=== PATIENT | male | born 1975 | race Caucasian/White ===

== ENCOUNTER 2019-08-27 08:46 | Outpatient (CLI) | payer OTHER ==
[2019-08-27] VITALS (8 sets, daily range): BP systolic 109–144; BP diastolic 56–86
[~2019-08-27] VITALS: Ht 190.5 cm; Wt 92.3 kg
[2019-08-27] MEDS ORDERED: OCRELIZUMAB 300 MG in NS 250 ML IV ONE (09:00)
[2019-08-27] MEDS ORDERED: diphenhydrAMINE 25MG CAP PO ONE (09:00)
[2019-08-27] MEDS ORDERED: methylPREDNISolone INJ 125 MG/2 ML VIAL (J2930) IV ONE (09:00)
[2019-08-27] MEDS ORDERED: ACETAMINOPHEN TAB 650MG DOSE (2X325MG) PO ONE (09:00)
[2019-08-27] MEDS ORDERED: MODA100T13 PO (10:34)
[2019-08-27] MEDS ORDERED: VITATAB74 PO (10:34)
[2019-08-27] MEDS ORDERED: COPA1INJ SC (10:34)
[2019-08-27] MEDS ORDERED: BACL1TAB9 PO (10:34)
[2019-08-27] MEDS ORDERED: FOLTTAB9 PO (10:34)
[2019-08-27] MEDS ORDERED: DIALTAB2 PO (10:34)
[2019-08-27] MEDS ORDERED: TRAM50TA2 PO (10:34)
[2019-08-27] MEDS ORDERED: IMIT100T PO (10:34)
== END 2019-08-27 13:00 | disposition home or self-care (01) ==
LOC: M INFU 08:46
PROVIDERS: ATTEND Psychiatry & Neurology Neurology
DX: G35 Multiple sclerosis (principal)
CPT/HCPCS: 96413; 96415; J2350; J2930

== ENCOUNTER 2019-09-11 08:27 | Outpatient (CLI) | payer OTHER ==
[~2019-09-11] VITALS: Ht 190.5 cm; Wt 92.3 kg
[~2019-09-11 08:27] MED LIST: BACL1TAB9 PO; COPA1INJ SC; DIALTAB2 PO; FOLTTAB9 PO; IMIT100T PO; MODA100T13 PO; TRAM50TA2 PO; VITATAB74 PO
[2019-09-11 08:40] VITALS: BP 139/81
[2019-09-11] MEDS ORDERED: ACETAMINOPHEN TAB 650MG DOSE (2X325MG) PO ONE (08:45)
[2019-09-11] MEDS ORDERED: diphenhydrAMINE 25MG CAP PO ONE (08:45)
[2019-09-11] MEDS ORDERED: methylPREDNISolone INJ 125 MG/2 ML VIAL (J2930) IV ONE (08:45)
[2019-09-11] MEDS ORDERED: OCRELIZUMAB 300 MG in NS 250 ML IV ONE (08:45)
[2019-09-11 09:45] VITALS: BP 122/67
[2019-09-11 10:00] VITALS: BP 112/64
[2019-09-11 10:45] VITALS: BP 118/57
[2019-09-11 11:45] VITALS: BP 116/68
[2019-09-11 12:15] VITALS: BP 121/76
== END 2019-09-11 12:15 | disposition home or self-care (01) ==
LOC: M INFU 08:27
PROVIDERS: ATTEND Psychiatry & Neurology Neurology
DX: G35 Multiple sclerosis (principal)
CPT/HCPCS: 96375; 96413; 96415; J2350; J2930

== ENCOUNTER 2020-03-10 08:43 | Outpatient (CLI) | payer OTHER ==
[2020-03-10] VITALS (7 sets, daily range): BP systolic 106–130; BP diastolic 61–87
[~2020-03-10] VITALS: Ht 188 cm; Wt 92.3 kg
[2020-03-10] MEDS ORDERED: methylPREDNISolone 125MG 2ML VIAL IV ONE (09:00)
[2020-03-10] MEDS ORDERED: ACETAMINOPHEN TAB 650MG DOSE (2X325MG) PO ONE (09:00)
[2020-03-10] MEDS ORDERED: diphenhydrAMINE 25MG CAP PO ONE (09:00)
[2020-03-10] MEDS ORDERED: OCRELIZUMAB 600 MG in NS 500 ML IV ONE (09:00)
== END 2020-03-10 13:25 | disposition home or self-care (01) ==
LOC: M INFU 08:43
PROVIDERS: ATTEND Psychiatry & Neurology Neurology
DX: G35 Multiple sclerosis (principal)
CPT/HCPCS: 96365; 96366; 96375; J2350; J2930

== ENCOUNTER 2020-09-07 08:59 | Outpatient (CLI) | payer OTHER ==
[~2020-09-07] VITALS: Ht 190.5 cm; Wt 86.3 kg
[2020-09-07] VITALS (7 sets, daily range): BP systolic 113–134; BP diastolic 72–89
[2020-09-07] MEDS ORDERED: methylPREDNISolone 125MG 2ML VIAL IV ONE (09:30)
[2020-09-07] MEDS ORDERED: ACETAMINOPHEN TAB 650MG DOSE (2X325MG) PO ONE (09:30)
[2020-09-07] MEDS ORDERED: OCRELIZUMAB 600 MG in NS 500 ML IV ONE (09:30)
[2020-09-07] MEDS ORDERED: diphenhydrAMINE 25MG CAP PO ONE (09:30)
== END 2020-09-07 14:20 | disposition home or self-care (01) ==
LOC: M INFU 08:59
PROVIDERS: ATTEND Psychiatry & Neurology Neurology
DX: G35 Multiple sclerosis (principal)
CPT/HCPCS: 96375; 96413; 96415; J2350; J2930

== ENCOUNTER 2020-11-21 12:23 | Emergency (ER) | payer OTHER ==
[~2020-11-21] VITALS: Ht 188 cm; Wt 89.1 kg
[2020-11-21] MEDS ORDERED: OCRE300I IV (12:45)
[2020-11-21 13:53] LABS: BASO # 0.1 10^3/uL (0.0-0.2); BASO % 0.7 % (0.0-1.0); EOS % 0.5 % (0.0-3.0); HEMATOCRIT 43.7 % (42.0-52.0); HEMOGLOBIN 15.8 g/dl (13.5-17.5); LYMPH # 2.1 10^3/uL (1.5-5.0); LYMPH % 23.8 % (24.0-44.0); MEAN CORPUSCULAR HEMOGLOBIN 31.5 pg (27.0-33.0); MEAN CORPUSCULAR HGB CONC 36.2 g/dl (32.0-36.5); MEAN CORPUSCULAR VOLUME 87.1 fl (80.0-96.0); MONO # 0.6 10^3/uL (0.0-0.8); MONO % 6.2 % (2.0-8.0); NEUTROPHILS % 68.3 % (36.0-66.0); PLATELET COUNT, AUTOMATED 255 10^3/uL (150-450); RED BLOOD COUNT 5.02 10^6/uL (4.30-6.10); WHITE BLOOD COUNT 8.8 10^3/uL (4.0-10.0)
[2020-11-21 14:27] LABS: ALBUMIN 3.8 GM/DL (3.2-5.2); ALT/SGPT 39 U/L (12-78); BILIRUBIN,DIRECT 0.2 MG/DL (0.0-0.2); BILIRUBIN,TOTAL 0.7 MG/DL (0.2-1.0); BLOOD UREA NITROGEN 9 MG/DL (7-18); CALCIUM LEVEL 8.9 MG/DL (8.5-10.1); CARBON DIOXIDE LEVEL 26 MEQ/L (21-32); CHLORIDE LEVEL 105 MEQ/L (98-107); CK-MB VALUE MASS 7.8 NG/ML (<3.6); CPK CREATINE PHOSPHOKINASE 809 U/L (39-308); CREATININE FOR GFR 0.73 MG/DL (0.70-1.30); FREE T4 0.96 NG/DL (0.76-1.46); GLOMERULAR FILTRATION RATE > 60.0 (>60); GLUCOSE, FASTING 90 MG/DL (70-100); LIPASE 96 U/L (73-393); MB/CK RELATIVE INDEX 0.96 (< OR =4); NT-PRO BNP 10 PG/ML (<125); POTASSIUM SERUM 3.8 MEQ/L (3.5-5.1); SODIUM LEVEL 138 MEQ/L (136-145); TOTAL PROTEIN 7.1 GM/DL (6.4-8.2); TROPONIN I < 0.02 NG/ML (< 0.10)
--- NOTE | 2020-11-21 14:33 | REP ---
INDICATION: CHEST PAIN COMPARISON: None. TECHNIQUE: Portable AP view of the chest FINDINGS: The mediastinum and cardiac silhouette are within normal limits for portable technique. The lung bautista are clear without acute consolidation, effusion, or pneumothorax. Skeletal structures are intact. IMPRESSION: No acute cardiopulmonary process appreciated. <Electronically signed by Roger Gerardo > 11/21/20 [id number]
[2020-11-21] MEDS ORDERED: ISOVUE-370 76% 100ML VIAL As Ordered ONE (14:53)
--- NOTE | 2020-11-21 15:39 | REP ---
INDICATION: SOB, rule out PE COMPARISON: None. TECHNIQUE: Axial contrast enhanced images from the thoracic inlet to the upper abdomen using pulmonary embolus technique with multiplanar re-formations. 100 ml Isovue 370 intravenous contrast material administered without complication. This CT examination was performed using the following dose reduction techniques: Automated exposure control, adjustment of mA and/or kv according to the patient's size, and use of iterative reconstruction technique. FINDINGS: Satisfactory enhancement of the pulmonary vasculature is achieved and no filling defects are identified to suggest pulmonary embolus. Further evaluation of the mediastinum demonstrates normal thoracic aorta, heart and pericardium. The bilateral lung bautista are well aerated and clear without consolidation, pleural effusion or pneumothorax. Small noncalcified perifissural nodules adjacent to the minor fissure measures up to 4 mm. Tracheobronchial tree is patent. No adenopathy noted. Surrounding musculoskeletal structures intact. Upper abdomen demonstrates normal bilateral adrenal glands IMPRESSION: No evidence for pulmonary embolus. Normal thoracic aorta. No acute mediastinal or pleural parenchymal process. 4 mm perifissural nodule along the right minor fissure. Based on risk factors, consider 12 month follow-up examination if necessary. <Electronically signed by Roger Gerardo > 11/21/20 [id number]
--- NOTE | 2020-11-21 15:45 | REP ---
INDICATION: left thigh claudication, please include tibial vessels COMPARISON: None TECHNIQUE: Axial contrast-enhanced images of the abdomen and pelvis with extension through the bilateral lower extremities using angiographic technique. 100 cc Isovue 370 intravenous contrast material administered without complication. Coronal and sagittal reformations obtained along with This CT examination was performed using the following dose reduction techniques: Automated exposure control, adjustment of mA and/or kv according to the patient's size, and use of iterative reconstruction technique. FINDINGS: The abdominal aorta and major branch vessels including celiac axis, superior mesenteric artery, bilateral renal arteries, inferior mesenteric artery and bilateral iliac arteries are normal. There is no evidence for aneurysm or dissection. No evidence for stenosis or occlusion. No significant atherosclerotic changes are identified. Angiographic evaluation through the pelvis and bilateral lower extremities demonstrates normal three-vessel runoff to the level of the ankles. Lung bases are clear. Visualized heart and pericardium normal. Liver, spleen, pancreas, gallbladder, bilateral adrenal glands and kidneys are normal for arterial enhancement. The enteric system is unremarkable and without obstruction or acute inflammatory process. Normal terminal ileum and appendix identified in the right lower quadrant. Sigmoid diverticula noted without acute diverticulitis. Pelvis demonstrates normal bladder and age-appropriate prostate/seminal vesicles. No ascites. No free air. No adenopathy. No focal inflammatory stranding. Musculoskeletal structures are intact and without acute osseous abnormality. IMPRESSION: No acute abdominopelvic pathology appreciated. Normal appearance to the aorta, branch vessels and arterial supply to the bilateral lower extremities. <Electronically signed by Roger Gerardo > 11/21/20 [id number]
[2020-11-21] MEDS ORDERED: NS 1,000 ML IV ONE (16:10)
--- NOTE | 2020-11-21 17:54 | REP ---
INDICATION: pain and swelling COMPARISON: None. TECHNIQUE: Christianson scale and color Doppler evaluation using linear high frequency transducer. FINDINGS: Ultrasound examination of the left lower extremity deep venous structures from the common femoral vein through the calf/ankle to include the peroneal, and tibial veins demonstrates normal compressibility flow and wave patterns in response to respiration and augmentation. There is no evidence for deep venous thrombosis. Contralateral CFV is patent and normal. IMPRESSION: No evidence for deep venous thrombosis. <Electronically signed by Roger Gerardo > 11/21/20 [id number]
[2020-11-21] MEDS ORDERED: DEXA6TAB PO (18:59)
[2020-11-21 19:15] VITALS: BP 128/71
--- NOTE | 2020-11-21 20:33 | ECGEPIP ---
[facility] - ED Test Date: 2020-11-21 Pat Name: JOSE ROSSI Department: Room: - Gender: Male [employer]: MARY KAY : 1975 Requested By: Bernice Pinzon Order Number: [id number] Reading MD: Suhas Recinos Measurements Intervals [place] Rate: 77 P: 30 DC: 136 QRS: 18 QRSD: 84 T: 45 QT: 382 QTc: 432 Interpretive Statements Normal sinus rhythm with sinus arrhythmia Low QRS complex voltage in the limb leads Nonspecific T wave abnormality Comparison tracing not on file Electronically Signed on 11-21-2020 20:32:31 EDT by Suhas Recinos
--- NOTE | 2020-11-25 11:36 | ED PDOC ---
Post-Departure Follow-Up radiology report faxed to [place] Bernice Uriostegui MD Nov 25, 2020 11:36
== END 2020-11-21 19:37 | disposition home or self-care (01) ==
LOC: M ED 12:23
DX: G35 Multiple sclerosis (principal); I70.212 Atherosclerosis of native arteries of extremities with intermittent claudication, left leg; R06.02 Shortness of breath; R11.0 Nausea; R51.9 Headache, unspecified; F17.200 Nicotine dependence, unspecified, uncomplicated; Z79.899 Other long term (current) drug therapy
CPT/HCPCS: 71045; 71275; 75635; 80048; 80076; 82550; 82553; 83605; 83690; 83880; 84439; 84443; 84484; 85025; 87798; 93005; 93041; 93971; 94760; 96360; 96361; 99285; Q9967

== ENCOUNTER 2020-12-14 16:10 | Outpatient (CLI) | payer OTHER ==
[~2020-12-14] VITALS: Ht 190.5 cm; Wt 90.0 kg
[2020-12-14 16:10] VITALS: BP 137/92
[~2020-12-14 16:10] MED LIST changes: +DEXA6TAB PO; +OCRE300I IV; +methylPREDNISolone 1,000 MG, VIAL MATE ADAPTER 1 EACH in NS 250 ML IV ONE
[2020-12-14] MEDS ORDERED: AMIT-257 PO (16:25)
[2020-12-14 17:30] VITALS: BP 140/82
== END 2020-12-14 17:30 | disposition home or self-care (01) ==
LOC: M INFU 16:10
PROVIDERS: ATTEND Family Medicine
DX: G35 Multiple sclerosis (principal)
CPT/HCPCS: 96365; J2930

== ENCOUNTER 2020-12-15 15:41 | Outpatient (CLI) | payer OTHER ==
[~2020-12-15] VITALS: Ht 188 cm; Wt 90.0 kg
[~2020-12-15 15:41] MED LIST changes: +AMIT-257 PO; -methylPREDNISolone 1,000 MG, VIAL MATE ADAPTER 1 EACH in NS 250 ML IV ONE
[2020-12-15 15:50] VITALS: BP 131/78
[2020-12-15] MEDS ORDERED: methylPREDNISolone 1,000 MG, VIAL MATE ADAPTER 1 EACH in NS 250 ML IV ONE (16:00)
[2020-12-15 17:00] VITALS: BP 130/83
== END 2020-12-15 17:00 | disposition home or self-care (01) ==
LOC: M INFU 15:41
PROVIDERS: ATTEND Family Medicine
DX: G35 Multiple sclerosis (principal)
CPT/HCPCS: 96365; J2930

== ENCOUNTER 2020-12-16 15:40 | Outpatient (CLI) | payer OTHER ==
[~2020-12-16] VITALS: Ht 188 cm; Wt 90.0 kg
[2020-12-16 15:40] VITALS: BP 138/86
[2020-12-16] MEDS ORDERED: methylPREDNISolone 1,000 MG, VIAL MATE ADAPTER 1 EACH in NS 250 ML IV ONE (16:00)
[2020-12-16 16:58] VITALS: BP 135/88
== END 2020-12-16 17:00 | disposition home or self-care (01) ==
LOC: M INFU 15:40
PROVIDERS: ATTEND Family Medicine
DX: G35 Multiple sclerosis (principal)
CPT/HCPCS: 96365; J2930

== ENCOUNTER 2020-12-17 15:50 | Outpatient (CLI) | payer OTHER ==
[2020-12-17 16:00] VITALS: BP 125/85
[2020-12-17] MEDS ORDERED: methylPREDNISolone 1,000 MG, VIAL MATE ADAPTER 1 EACH in NS 250 ML IV ONE (16:00)
[2020-12-17 17:30] VITALS: BP 138/79
== END 2020-12-17 17:20 | disposition home or self-care (01) ==
LOC: M INFU 15:50
PROVIDERS: ATTEND Family Medicine
DX: G35 Multiple sclerosis (principal)
CPT/HCPCS: 96365; J2930

== ENCOUNTER 2020-12-18 09:53 | Outpatient (CLI) | payer OTHER ==
[~2020-12-18] VITALS: Ht 188 cm; Wt 103.0 kg
[2020-12-18 10:05] VITALS: BP 118/71
[2020-12-18] MEDS ORDERED: methylPREDNISolone 1,000 MG, VIAL MATE ADAPTER 1 EACH in NS 250 ML IV ONE (10:30)
[2020-12-18 11:27] VITALS: BP 127/80
== END 2020-12-18 11:25 | disposition home or self-care (01) ==
LOC: M INFU 09:53
PROVIDERS: ATTEND Family Medicine
DX: G35 Multiple sclerosis (principal)
CPT/HCPCS: 96365; J2930

== ENCOUNTER 2021-03-09 08:12 | Outpatient (CLI) | payer OTHER ==
[~2021-03-09] VITALS: Ht 190.5 cm; Wt 98.2 kg
[2021-03-09] VITALS (8 sets, daily range): BP systolic 107–143; BP diastolic 58–83
[2021-03-09] MEDS ORDERED: GABA800T4 PO (08:23)
[2021-03-09] MEDS ORDERED: OCRELIZUMAB 600 MG in NS 500 ML IV ONE (09:00)
[2021-03-09] MEDS ORDERED: methylPREDNISolone 125MG 2ML VIAL IV ONE (09:00)
[2021-03-09] MEDS ORDERED: ACETAMINOPHEN TAB 650MG DOSE (2X325MG) PO ONE (09:00)
[2021-03-09] MEDS ORDERED: diphenhydrAMINE 25MG CAP PO ONE (09:00)
== END 2021-03-09 13:30 | disposition home or self-care (01) ==
LOC: M INFU 08:12
PROVIDERS: ATTEND Psychiatry & Neurology Neurology
DX: G35 Multiple sclerosis (principal)
CPT/HCPCS: 96365; 96366; 96375; J2350; J2930

== ENCOUNTER 2021-05-11 14:05 | Observation (INO) | payer OTHER ==
[~2021-05-11] VITALS: Ht 190.5 cm; Wt 100.0 kg
[~2021-05-11 14:05] MED LIST changes: +GABA800T4 PO
[2021-05-11 17:14] LABS: BASO # 0.1 10^3/uL (0.0-0.2); BASO % 0.7 % (0.0-1.0); EOS # 0.2 10^3/uL (0.0-0.5); EOS % 1.4 % (0.0-3.0); HEMATOCRIT 37.9 % (42.0-52.0); HEMOGLOBIN 12.8 g/dl (13.5-17.5); LYMPH # 3.9 10^3/uL (1.5-5.0); LYMPH % 33.2 % (24.0-44.0); MEAN CORPUSCULAR HEMOGLOBIN 30.3 pg (27.0-33.0); MEAN CORPUSCULAR HGB CONC 33.8 g/dl (32.0-36.5); MEAN CORPUSCULAR VOLUME 89.6 fl (80.0-96.0); MONO # 1.1 10^3/uL (0.0-0.8); MONO % 9.3 % (2.0-8.0); NEUTROPHILS # 6.3 10^3/uL (1.5-8.5); PLATELET COUNT, AUTOMATED 312 10^3/uL (150-450); RED BLOOD COUNT 4.23 10^6/uL (4.30-6.10); WHITE BLOOD COUNT 11.7 10^3/uL (4.0-10.0)
[2021-05-11 17:31] LABS: ALBUMIN 3.2 GM/DL (3.2-5.2); ALT/SGPT 40 U/L (12-78); BILIRUBIN,DIRECT < 0.1 MG/DL (0.0-0.2); BILIRUBIN,TOTAL 0.4 MG/DL (0.2-1.0); BLOOD UREA NITROGEN 8 MG/DL (7-18); C REACTIVE PROTEIN QUANTITATIV 4.03 MG/DL (0.00-0.30); CALCIUM LEVEL 8.8 MG/DL (8.5-10.1); CARBON DIOXIDE LEVEL 30 MEQ/L (21-32); CHLORIDE LEVEL 106 MEQ/L (98-107); CREATININE FOR GFR 0.61 MG/DL (0.70-1.30); GLOMERULAR FILTRATION RATE > 60.0 (>60); GLUCOSE, FASTING 92 MG/DL (70-100); POTASSIUM SERUM 3.9 MEQ/L (3.5-5.1); SODIUM LEVEL 142 MEQ/L (136-145); TOTAL PROTEIN 6.5 GM/DL (6.4-8.2)
[2021-05-11 18:11] LABS: ERYTHROCYTE SEDIMENTATION RATE 85 mm/hr (0-15)
[2021-05-11] MEDS ORDERED: VANCOMYCIN HCL 2,000 MG in D5W 500 ML IV ONE (19:30)
[2021-05-11] MEDS ORDERED: VANCOMYCIN HCL 1,000 MG, VIAL MATE ADAPTER 1 EACH in NS 250 ML IV ONE ×2 (20:00→21:00)
[2021-05-11] MEDS ORDERED: NEUR300C PO (20:20)
[2021-05-11] MEDS ORDERED: VITA200021 PO (20:27)
[2021-05-11] MEDS ORDERED: HOME MED LIST COMPLETE! XX SCH (20:30)
[2021-05-11] MEDS ORDERED: AMITRIPTYLINE 50 MG TAB PO SCH (21:00)
[2021-05-11] MEDS: BACLOFEN 10 MG TAB PO SCH (21:00)
[2021-05-11] MEDS: GABAPENTIN 300 MG CAP PO SCH (21:00)
[2021-05-11] MEDS ORDERED: SUMAtriptan SUCCINATE 25 MG TAB PO PRN (22:05)
[2021-05-11] MEDS ORDERED: ACETAMINOPHEN TAB 650MG DOSE (2X325MG) PO PRN (22:05)
[2021-05-11] MEDS ORDERED: traMADol 50 MG TAB PO PRN (22:05)
[2021-05-12 02:02] VITALS: BP 139/85
[2021-05-12 05:54] VITALS: BP 118/64
[2021-05-12] MEDS ORDERED: VANCOMYCIN HCL 750 MG, VIAL MATE ADAPTER 1 EACH in NS 250 ML IV SCH ×2 (06:00→07:00)
[2021-05-12] MEDS: BACLOFEN 10 MG TAB PO SCH (09:00)
[2021-05-12] MEDS: GABAPENTIN 300 MG CAP PO SCH (09:00)
[2021-05-12 10:14] LABS: BLOOD UREA NITROGEN 6 MG/DL (7-18); CALCIUM LEVEL 8.1 MG/DL (8.5-10.1); CARBON DIOXIDE LEVEL 29 MEQ/L (21-32); CHLORIDE LEVEL 107 MEQ/L (98-107); CREATININE FOR GFR 0.72 MG/DL (0.70-1.30); GLOMERULAR FILTRATION RATE > 60.0 (>60); GLUCOSE, FASTING 130 MG/DL (70-100); POTASSIUM SERUM 3.6 MEQ/L (3.5-5.1); SODIUM LEVEL 143 MEQ/L (136-145)
[2021-05-12] MEDS ORDERED: CEPH500C PO (13:07)
[2021-05-12] MEDS ORDERED: DOXY-350 PO (13:07)
== END 2021-05-12 13:45 | disposition home or self-care (01) ==
LOC: M ED 14:05 → M ED INP 14:06 → M 4MAIN 05-12 02:00
PROVIDERS: ADMIT Internal Medicine; ATTEND Internal Medicine
DX: L03.115 Cellulitis of right lower limb (principal); S91.301D Unspecified open wound, right foot, subsequent encounter; X58.XXXD Exposure to other specified factors, subsequent encounter; M79.89 Other specified soft tissue disorders; D72.829 Elevated white blood cell count, unspecified; A49.02 Methicillin resistant Staphylococcus aureus infection, unspecified site; U07.1 COVID-19; G35 Multiple sclerosis; G43.909 Migraine, unspecified, not intractable, without status migrainosus; Z90.89 Acquired absence of other organs; Z79.899 Other long term (current) drug therapy; Z79.2 Long term (current) use of antibiotics
CPT/HCPCS: 36415; 73630; 73718; 80047; 80048; 80076; 80202; 83605; 85025; 85652; 86140; 87040; 87070; 87077; 87186; 87205; 87426; 87641; 93971; 96365; 96366; 96376; 99284; G0378; J3370

== ENCOUNTER 2021-05-15 08:49 | Emergency (ER) | payer OTHER ==
[~2021-05-15] VITALS: Ht 190.5 cm; Wt 98.6 kg
[~2021-05-15 08:49] MED LIST changes: +CEPH500C PO; +DOXY-350 PO; +NEUR300C PO; +VITA200021 PO
[2021-05-15 11:33] LABS: BASO # 0.1 10^3/uL (0.0-0.2); BASO % 0.8 % (0.0-1.0); EOS # 0.1 10^3/uL (0.0-0.5); EOS % 1.5 % (0.0-3.0); HEMATOCRIT 34.5 % (42.0-52.0); HEMOGLOBIN 11.7 g/dl (13.5-17.5); LYMPH # 2.6 10^3/uL (1.5-5.0); LYMPH % 27.5 % (24.0-44.0); MEAN CORPUSCULAR HEMOGLOBIN 30.3 pg (27.0-33.0); MEAN CORPUSCULAR HGB CONC 33.9 g/dl (32.0-36.5); MEAN CORPUSCULAR VOLUME 89.4 fl (80.0-96.0); MONO # 0.8 10^3/uL (0.0-0.8); MONO % 8.4 % (2.0-8.0); NEUTROPHILS # 5.6 10^3/uL (1.5-8.5); NEUTROPHILS % 60.6 % (36.0-66.0); PLATELET COUNT, AUTOMATED 342 10^3/uL (150-450); RED BLOOD COUNT 3.86 10^6/uL (4.30-6.10); WHITE BLOOD COUNT 9.3 10^3/uL (4.0-10.0)
[2021-05-15 11:51] LABS: ERYTHROCYTE SEDIMENTATION RATE 77 mm/hr (0-15)
[2021-05-15 11:58] LABS: CK-MB VALUE MASS 1.8 NG/ML (<3.6); MB/CK RELATIVE INDEX 2.57 (< OR =4)
[2021-05-15 11:59] LABS: BLOOD UREA NITROGEN 8 MG/DL (7-18); CALCIUM LEVEL 8.6 MG/DL (8.5-10.1); CARBON DIOXIDE LEVEL 25 MEQ/L (21-32); CHLORIDE LEVEL 110 MEQ/L (98-107); CREATININE FOR GFR 0.72 MG/DL (0.70-1.30); GLOMERULAR FILTRATION RATE > 60.0 (>60); GLUCOSE, FASTING 97 MG/DL (70-100); NT-PRO BNP 76 PG/ML (<125); SODIUM LEVEL 142 MEQ/L (136-145)
[2021-05-15 12:53] VITALS: BP 130/92
== END 2021-05-15 12:57 | disposition home or self-care (01) ==
LOC: EEVIPCON 08:49 → M ED 08:49
DX: R60.0 Localized edema (principal); G35 Multiple sclerosis; Z79.899 Other long term (current) drug therapy

== ENCOUNTER → 2021-07-27 | Outpatient (CLI) | payer OTHER | LOC: M LAB 12:48 | PROVIDERS: ATTEND Internal Medicine Cardiovascular Disease | DX: R06.02 Shortness of breath (principal) ==

== ENCOUNTER 2021-08-31 08:12 | Outpatient (CLI) | payer OTHER ==
[~2021-08-31] VITALS: Ht 190.5 cm; Wt 109.5 kg
[2021-08-31 08:34] VITALS: BP 136/95
[2021-08-31] MEDS ORDERED: diphenhydrAMINE 25MG CAP PO ONE (09:00)
[2021-08-31] MEDS ORDERED: ACETAMINOPHEN TAB 650MG DOSE (2X325MG) PO ONE (09:00)
[2021-08-31] MEDS ORDERED: OCRELIZUMAB 600 MG in NS 500 ML IV ONE (09:00)
[2021-08-31] MEDS ORDERED: methylPREDNISolone 125MG 2ML VIAL IV ONE (09:00)
[2021-08-31 09:45] VITALS: BP 124/80
[2021-08-31 10:45] VITALS: BP 131/76
[2021-08-31 11:15] VITALS: BP 127/81
[2021-08-31 12:15] VITALS: BP 124/74
== END 2021-08-31 13:07 | disposition home or self-care (01) ==
LOC: M INFU 08:12
PROVIDERS: ATTEND Psychiatry & Neurology Neurology
DX: G35 Multiple sclerosis (principal)
CPT/HCPCS: 96365; 96366; 96375; J2350; J2930

== ENCOUNTER → 2021-11-17 | Outpatient (CLI) | payer OTHER | LOC: M RAD 12:53 | PROVIDERS: ATTEND Physician Assistant Medical | DX: M25.572 Pain in left ankle and joints of left foot (principal) ==

== ENCOUNTER 2022-03-03 10:11 | Emergency (ER) | payer OTHER ==
[~2022-03-03] VITALS: Ht 188 cm; Wt 85.4 kg
[~2022-03-03 10:11] MED LIST changes: -DOXY-350 PO; +DOXY-444 PO
[2022-03-03] MEDS ORDERED: NS 1,000 ML IV ONE (16:55)
[2022-03-03] MEDS ORDERED: PROHANCE 279.3MG/ML 15ML VIAL As Ordered ONE (17:20)
[2022-03-03] MEDS ORDERED: PROHANCE 279.3MG/ML 5ML VIAL As Ordered ONE (17:20)
[2022-03-03 18:15] LABS: BASO % 0.3 % (0.0-1.0); EOS % 0.4 % (0.0-3.0); HEMATOCRIT 44.4 % (42.0-52.0); HEMOGLOBIN 15.3 g/dl (13.5-17.5); LYMPH # 2.5 10^3/uL (1.5-5.0); LYMPH % 27.9 % (24.0-44.0); MEAN CORPUSCULAR HGB CONC 34.5 g/dl (32.0-36.5); MEAN CORPUSCULAR VOLUME 87.1 fl (80.0-96.0); MONO # 0.6 10^3/uL (0.0-0.8); MONO % 6.8 % (2.0-8.0); NEUTROPHILS # 5.9 10^3/uL (1.5-8.5); NEUTROPHILS % 64.3 % (36.0-66.0); PLATELET COUNT, AUTOMATED 252 10^3/uL (150-450); WHITE BLOOD COUNT 9.1 10^3/uL (4.0-10.0)
[2022-03-03 18:27] LABS: INR 0.94; PROTHROMBIN TIME 12.8 SECONDS (12.5-14.5)
[2022-03-03 18:28] LABS: PARTIAL THROMBOPLASTIN TIME 25.3 SECONDS (24.8-34.2)
[2022-03-03 18:41] LABS: ETHYL ALCOHOL (ETHANOL) 0.004 % (0.000-0.010); LIPASE 27 U/L (12-53)
[2022-03-03 18:42] LABS: ACETAMINOPHEN LEVEL < 2.0 UG/ML (10.0-20.0); BILIRUBIN,DIRECT 0.1 MG/DL (<0.4)
[2022-03-03 18:43] LABS: ALKALINE PHOSPHATASE 104 U/L (46-116); ALT/SGPT 25 U/L (7.0-40); AST/SGOT 19 U/L (<34); BILIRUBIN,TOTAL 0.5 MG/DL (0.3-1.2); BLOOD UREA NITROGEN 6 MG/DL (9-23); CALCIUM LEVEL 9.3 MG/DL (8.5-10.1); CARBON DIOXIDE LEVEL 32 MMOL/L (20-31); CHLORIDE LEVEL 103 MMOL/L (98-107); CREATININE FOR GFR 0.72 MG/DL (0.70-1.30); GLOMERULAR FILTRATION RATE > 60.0 (>60); GLUCOSE, FASTING 95 MG/DL (60-100); POTASSIUM SERUM 3.8 MMOL/L (3.5-5.1); RSV AMPLIFICATION NEGATIVE (NEGATIVE); SALICYLATE LEVEL < 3.0 MG/DL (<30); SODIUM LEVEL 144 MMOL/L (136-145); TOTAL PROTEIN 6.5 G/DL (5.7-8.2)
[2022-03-03 18:46] LABS: THYROID STIMULATING HORMONE 1.602 uIU/ML (0.55-4.78)
[2022-03-03 19:07] VITALS: BP 125/87
[2022-03-03 19:16] LABS: ERYTHROCYTE SEDIMENTATION RATE 10 mm/hr (0-15)
[2022-03-03 19:27] LABS: AMPHETAMINES LEVEL URINE NEGATIVE (NEGATIVE); BARBITURATES URINE NEGATIVE (NEGATIVE); BENZODIAZEPINES URINE NEGATIVE (NEGATIVE); COCAINE METABOLITE URINE NEGATIVE (NEGATIVE)
[2022-03-03 19:28] LABS: METHADONE URINE NEGATIVE (NEGATIVE); OPIATES URINE NEGATIVE (NEGATIVE); PHENCYCLIDINE URINE NEGATIVE (NEGATIVE)
[2022-03-03 19:31] LABS: CANNABINOIDS URINE POSITIVE (NEGATIVE)
[2022-03-03] MEDS ORDERED: DEXA4TA PO (20:54)
[2022-03-03] MEDS ORDERED: CYAN1000VL IM (20:54)
[2022-03-03] MEDS ORDERED: HOME MED LIST COMPLETE! XX SCH (20:55)
[2022-03-03] MEDS ORDERED: traMADol 50 MG TAB PO ONE (22:10)
[2022-03-03] MEDS ORDERED: BACLOFEN 10 MG TAB PO ONE (22:10)
[2022-03-03] MEDS ORDERED: AMITRIPTYLINE 50 MG TAB PO ONE (22:10)
[2022-03-03] MEDS ORDERED: GABAPENTIN 400MG CAP PO ONE (22:10)
== END 2022-03-04 07:40 | disposition home or self-care (01) ==
LOC: M ED 10:11
DX: F41.9 Anxiety disorder, unspecified (principal); F32.9 Major depressive disorder, single episode, unspecified; R45.851 Suicidal ideations; R45.850 Homicidal ideations; F12.10 Cannabis abuse, uncomplicated; S22.060A Wedge compression fracture of T7-T8 vertebra, initial encounter for closed fracture; K21.9 Gastro-esophageal reflux disease without esophagitis; G35 Multiple sclerosis; I10 Essential (primary) hypertension; Z86.14 Personal history of Methicillin resistant Staphylococcus aureus infection; Z79.899 Other long term (current) drug therapy
CPT/HCPCS: 70450; 71046; 72125; 72128; 72158; 80048; 80076; 80143; 80307; 81002; 82077; 83690; 84443; 85025; 85610; 85652; 85730; 86140; 87040; 87631; 93005; 99284; A9576

== ENCOUNTER 2022-11-11 18:35 | Emergency (ER) | payer OTHER ==
[~2022-11-11 18:35] MED LIST changes: +CYAN1000VL IM; +DEXA4TA PO
[2022-11-11] MEDS ORDERED: OMEP1CAP73 PO (23:50)
[2022-11-11] MEDS ORDERED: PROP40TA62 PO (23:50)
[2022-11-11] MEDS ORDERED: PREG100CA PO (23:50)
[2022-11-11] MEDS ORDERED: OLAN1TAB16 PO (23:50)
[2022-11-11] MEDS ORDERED: FURO40TA2 PO (23:50)
[2022-11-11] MEDS ORDERED: MODA100T13 PO (23:50)
[2022-11-11] MEDS ORDERED: VALS1TAB67 PO (23:50)
[2022-11-11] MEDS ORDERED: CALC20SPR (23:50)
[2022-11-11] MEDS ORDERED: TRAM50TA2 PO (23:50)
[2022-11-11] MEDS ORDERED: OCRE300I IV (23:51)
== END 2022-11-11 18:36 | disposition still patient (30) ==
LOC: M ED 18:35
DX: Z53.21 Procedure and treatment not carried out due to patient leaving prior to being seen by health care provider (principal)

== ENCOUNTER 2022-11-11 18:38 | Inpatient (IN) | payer OTHER ==
[~2022-11-11] VITALS: Ht 188 cm; Wt 72.7 kg
[2022-11-11 20:47] LABS: HEMATOCRIT 45.5 % (42.0-52.0); HEMOGLOBIN 16.6 g/dl (13.5-17.5); MEAN CORPUSCULAR HEMOGLOBIN 30.2 pg (27.0-33.0); MEAN CORPUSCULAR HGB CONC 36.5 g/dl (32.0-36.5); MEAN CORPUSCULAR VOLUME 82.7 fl (80.0-96.0); PLATELET COUNT, AUTOMATED 406 10^3/uL (150-450); WHITE BLOOD COUNT 16.1 10^3/uL (4.0-10.0)
[2022-11-11 21:09] LABS: ETHYL ALCOHOL (ETHANOL) < 0.003 % (0.000-0.010)
[2022-11-11 21:11] LABS: ACETAMINOPHEN LEVEL < 2.0 UG/ML (10.0-20.0); ALBUMIN 4.3 G/DL (3.2-5.2); ALKALINE PHOSPHATASE 102 U/L (46-116); ALT/SGPT 20 U/L (7.0-40); AST/SGOT 13 U/L (<34); BILIRUBIN,DIRECT 0.2 MG/DL (<0.4); BILIRUBIN,TOTAL 0.7 MG/DL (0.3-1.2); BLOOD UREA NITROGEN 9 MG/DL (9-23); CALCIUM LEVEL 9.8 MG/DL (8.5-10.1); CARBON DIOXIDE LEVEL 29 MMOL/L (20-31); CHLORIDE LEVEL 94 MMOL/L (98-107); CREATININE FOR GFR 0.77 MG/DL (0.70-1.30); GLOMERULAR FILTRATION RATE > 60.0 (>60); GLUCOSE, FASTING 113 MG/DL (60-100); POTASSIUM SERUM 3.5 MMOL/L (3.5-5.1); SALICYLATE LEVEL < 3.0 MG/DL (<30); SODIUM LEVEL 133 MMOL/L (136-145); TOTAL PROTEIN 7.1 G/DL (5.7-8.2)
[2022-11-11 21:13] LABS: THYROID STIMULATING HORMONE 2.593 uIU/ML (0.55-4.78)
[2022-11-11] MEDS ORDERED: VALS1TAB67 PO (23:50)
[2022-11-11] MEDS ORDERED: FURO40TA2 PO (23:50)
[2022-11-11] MEDS ORDERED: PROP40TA62 PO (23:50)
[2022-11-11] MEDS ORDERED: TRAM50TA2 PO (23:50)
[2022-11-11] MEDS ORDERED: CALC20SPR (23:50)
[2022-11-11] MEDS ORDERED: OLAN1TAB16 PO (23:50)
[2022-11-11] MEDS ORDERED: PREG100CA PO (23:50)
[2022-11-11] MEDS ORDERED: MODA100T13 PO (23:50)
[2022-11-11] MEDS ORDERED: OMEP1CAP73 PO (23:50)
[2022-11-11] MEDS ORDERED: OCRE300I IV (23:51)
[2022-11-11] MEDS ORDERED: HOME MED LIST COMPLETE! XX SCH (23:55)
[2022-11-12] MEDS ORDERED: AMITRIPTYLINE 50 MG TAB PO STA (01:27)
[2022-11-12] MEDS ORDERED: traMADol 50 MG TAB PO ONE (01:30)
[2022-11-12] MEDS ORDERED: BACLOFEN 10 MG TAB PO ONE (01:30)
[2022-11-12] MEDS ORDERED: PREGABALIN 100 MG CAP (LYRICA) PO ONE (01:30)
[2022-11-12] MEDS ORDERED: FUROSEMIDE 20 MG TAB PO SCH (09:00)
[2022-11-12] MEDS ORDERED: VALSARTAN 80 MG TAB (DIOVAN) PO SCH (09:00)
[2022-11-12] MEDS ORDERED: MODAFINIL 100 MG TABLET PO SCH (09:00)
[2022-11-12] MEDS ORDERED: PROPRANOLOL 20 MG TAB PO SCH ×2 (09:00→21:00)
[2022-11-12] MEDS ORDERED: PREGABALIN 100 MG CAP (LYRICA) PO SCH (09:00)
[2022-11-12] MEDS ORDERED: OMEPRAZOLE 20MG CAP PO SCH (09:00)
[2022-11-12] MEDS: BACLOFEN 10 MG TAB PO SCH ×4 (09:06→20:18)
[2022-11-12] MEDS: traMADol 50 MG TAB PO SCH ×4 (09:07→20:20)
[2022-11-12] MEDS ORDERED: OLANZapine ORAL DISINTEGRATING TAB 5MG PO PRN (13:05)
[2022-11-12 17:06] VITALS: BP 131/79; TEMP 97; O2SAT 100
[2022-11-12] MEDS ORDERED: SUMAtriptan SUCCINATE 25 MG TAB PO PRN (19:55)
[2022-11-12 20:14] VITALS: BP 128/85
[2022-11-12] MEDS: OMEPRAZOLE 20MG CAP PO SCH (20:20)
[2022-11-12] MEDS: AMITRIPTYLINE 50 MG TAB PO SCH (20:20)
[2022-11-12] MEDS: PREGABALIN 100 MG CAP (LYRICA) PO SCH (20:21)
[2022-11-12] MEDS: MODAFINIL 100 MG TABLET PO SCH (20:28)
[2022-11-12 20:45] VITALS: BP 124/82; TEMP 96.5; O2SAT 100
[2022-11-12 21:57] LABS: BASO # 0.1 10^3/uL (0.0-0.2); BASO % 0.4 % (0.0-1.0); EOS # 0.2 10^3/uL (0.0-0.5); EOS % 1.1 % (0.0-3.0); HEMATOCRIT 45.8 % (42.0-52.0); HEMOGLOBIN 16.1 g/dl (13.5-17.5); LYMPH # 2.5 10^3/uL (1.5-5.0); LYMPH % 18.2 % (24.0-44.0); MEAN CORPUSCULAR HEMOGLOBIN 30.1 pg (27.0-33.0); MEAN CORPUSCULAR HGB CONC 35.2 g/dl (32.0-36.5); MEAN CORPUSCULAR VOLUME 85.8 fl (80.0-96.0); MONO % 7.1 % (2.0-8.0); NEUTROPHILS # 10.2 10^3/uL (1.5-8.5); NEUTROPHILS % 72.8 % (36.0-66.0); PLATELET COUNT, AUTOMATED 340 10^3/uL (150-450); RED BLOOD COUNT 5.34 10^6/uL (4.30-6.10); WHITE BLOOD COUNT 13.9 10^3/uL (4.0-10.0)
[2022-11-12 22:05] LABS: APPEARANCE, URINE CLEAR (CLEAR); BACTERIA, URINE AUTO NEGATIVE (NEGATIVE); BILIRUBIN, URINE AUTO NEGATIVE (NEGATIVE); BLOOD, URINE BLOOD NEGATIVE (NEGATIVE); COLOR, URINE YELLOW (YELLOW); GLUCOSE, URINE (UA) AUTO NEGATIVE (NEGATIVE); KETONE, URINE AUTO TRACE mg/dL (NEGATIVE); LEUKOCYTE ESTERASE, URINE AUTO 2+ (NEGATIVE); MUCUS, URINE SMALL (NEGATIVE); NITRITE, URINE AUTO NEGATIVE (NEGATIVE); PROTEIN, URINE AUTO NEGATIVE (NEGATIVE); RBC, URINE AUTO 0 /HPF (0-3); SPECIFIC GRAVITY URINE AUTO 1.013 (1.002-1.035); SQUAMOUS EPITHELIAL CELL UR AU 0 /HPF (0-6); UROBILINOGEN, URINE AUTO 0.2 mg/dL (0.0-2.0); WBC, URINE AUTO 16 /HPF (0-3)
[2022-11-12 22:38] LABS: PROCALCITONIN <0.04 ng/ml
[2022-11-12 22:41] LABS: ALKALINE PHOSPHATASE 105 U/L (46-116); ALT/SGPT 19 U/L (7.0-40); AST/SGOT 12 U/L (<34); BILIRUBIN,TOTAL 0.7 MG/DL (0.3-1.2); BLOOD UREA NITROGEN 11 MG/DL (9-23); CALCIUM LEVEL 9.7 MG/DL (8.5-10.1); CARBON DIOXIDE LEVEL 34 MMOL/L (20-31); CHLORIDE LEVEL 97 MMOL/L (98-107); CREATININE FOR GFR 0.79 MG/DL (0.70-1.30); GLOMERULAR FILTRATION RATE > 60.0 (>60); GLUCOSE, FASTING 115 MG/DL (60-100); MAGNESIUM LEVEL 2.2 MG/DL (1.8-2.4); POTASSIUM SERUM 4.3 MMOL/L (3.5-5.1); SODIUM LEVEL 136 MMOL/L (136-145); TOTAL PROTEIN 6.9 G/DL (5.7-8.2)
[2022-11-12] MEDS ORDERED: ISOVUE-370 76% 100ML VIAL As Ordered ONE (22:58)
[2022-11-12 23:38] VITALS: BP 112/52; TEMP 95.9; O2SAT 100
[2022-11-13] MEDS ORDERED: MIRALAX *UNIT DOSE* 17GM PACKET PO PRN (00:25)
[2022-11-13 06:50] VITALS: BP 104/75; TEMP 97.1; O2SAT 100
[2022-11-13] MEDS: OMEPRAZOLE 20MG CAP PO SCH ×2 (09:00→20:38)
[2022-11-13] MEDS ORDERED: FUROSEMIDE 40 MG TAB PO SCH (09:00)
[2022-11-13] MEDS: CALCITONIN NASAL SPRAY 3.7ML BTL SCH (09:00)
[2022-11-13] MEDS ORDERED: VALSARTAN 80 MG TAB (DIOVAN) PO SCH (09:00)
[2022-11-13] MEDS: PREGABALIN 100 MG CAP (LYRICA) PO SCH ×2 (09:34→20:38)
[2022-11-13] MEDS: MODAFINIL 100 MG TABLET PO SCH ×2 (09:34→20:41)
[2022-11-13] MEDS: traMADol 50 MG TAB PO SCH (09:35)
[2022-11-13] MEDS: BACLOFEN 10 MG TAB PO SCH ×4 (09:35→20:40)
[2022-11-13] MEDS: MIRALAX *UNIT DOSE* 17GM PACKET PO SCH ×2 (11:47→11:57)
[2022-11-13] MEDS: DOCUSATE SODIUM 100MG CAPSULE PO SCH ×3 (11:47→20:38)
[2022-11-13] MEDS: traMADol 50 MG TAB PO PRN ×2 (15:56→22:37)
[2022-11-13 17:12] VITALS: BP 139/90; TEMP 98.6
[2022-11-13] MEDS: AMITRIPTYLINE 50 MG TAB PO SCH (20:41)
[2022-11-13] MEDS ORDERED: BACLOFEN 10 MG TAB PO SCH (21:00)
[2022-11-13] MEDS ORDERED: OLANZapine 5 MG TAB PO SCH (21:00)
[2022-11-14] MEDS: MODAFINIL 100 MG TABLET PO SCH ×2 (08:08→20:26)
[2022-11-14] MEDS: PREGABALIN 100 MG CAP (LYRICA) PO SCH ×2 (08:08→20:26)
[2022-11-14] MEDS: CALCITONIN NASAL SPRAY 3.7ML BTL SCH (08:09)
[2022-11-14] MEDS: OMEPRAZOLE 20MG CAP PO SCH ×2 (08:09→20:26)
[2022-11-14] MEDS: MIRALAX *UNIT DOSE* 17GM PACKET PO SCH (08:09)
[2022-11-14] MEDS: BACLOFEN 10 MG TAB PO SCH ×4 (08:09→20:26)
[2022-11-14] MEDS: DOCUSATE SODIUM 100MG CAPSULE PO SCH ×3 (08:09→20:40)
[2022-11-14] MEDS: traMADol 50 MG TAB PO PRN ×3 (08:11→20:31)
[2022-11-14 08:14] VITALS: BP 108/64
[2022-11-14] MEDS: VALSARTAN 80 MG TAB (DIOVAN) PO SCH (09:00)
[2022-11-14 12:25] VITALS: BP 119/85
[2022-11-14 18:00] VITALS: BP 148/87; TEMP 98.2
[2022-11-14] MEDS: OLANZapine 5 MG TAB PO SCH (20:26)
[2022-11-14] MEDS: AMITRIPTYLINE 50 MG TAB PO SCH ×2 (20:26→20:40)
[2022-11-15 05:57] VITALS: BP 126/70; TEMP 97.5; O2SAT 99
[2022-11-15] MEDS: DOCUSATE SODIUM 100MG CAPSULE PO SCH (07:58)
[2022-11-15] MEDS: MIRALAX *UNIT DOSE* 17GM PACKET PO SCH (07:58)
[2022-11-15] MEDS: CALCITONIN NASAL SPRAY 3.7ML BTL SCH (07:59)
[2022-11-15 08:03] VITALS: BP 113/74
[2022-11-15] MEDS: VALSARTAN 80 MG TAB (DIOVAN) PO SCH (08:07)
[2022-11-15] MEDS: MODAFINIL 100 MG TABLET PO SCH ×2 (08:07→20:34)
[2022-11-15] MEDS: BACLOFEN 10 MG TAB PO SCH ×4 (08:07→20:34)
[2022-11-15] MEDS: OLANZapine 5 MG TAB PO SCH ×2 (08:07→20:34)
[2022-11-15] MEDS: PREGABALIN 100 MG CAP (LYRICA) PO SCH ×2 (08:07→20:34)
[2022-11-15] MEDS: OMEPRAZOLE 20MG CAP PO SCH ×2 (08:07→20:34)
[2022-11-15] MEDS: traMADol 50 MG TAB PO PRN ×4 (08:08→20:45)
[2022-11-15] MEDS ORDERED: DOCUSATE SODIUM 100MG CAPSULE PO PRN (11:00)
[2022-11-15] MEDS ORDERED: MIRALAX *UNIT DOSE* 17GM PACKET PO PRN (11:00)
[2022-11-15 19:29] VITALS: BP 129/69; TEMP 97.2
[2022-11-15] MEDS: AMITRIPTYLINE 50 MG TAB PO SCH (20:42)
[2022-11-16] MEDS ORDERED: ACETAMINOPHEN 500 MG TAB PO ONE (05:00)
[2022-11-16 06:35] VITALS: BP 134/69; TEMP 97.5; O2SAT 98
[2022-11-16] MEDS: CALCITONIN NASAL SPRAY 3.7ML BTL SCH (08:05)
[2022-11-16] MEDS: BACLOFEN 10 MG TAB PO SCH ×2 (08:11→12:12)
[2022-11-16] MEDS: MODAFINIL 100 MG TABLET PO SCH (08:11)
[2022-11-16] MEDS: PREGABALIN 100 MG CAP (LYRICA) PO SCH (08:11)
[2022-11-16] MEDS: OMEPRAZOLE 20MG CAP PO SCH (08:11)
[2022-11-16] MEDS: OLANZapine 5 MG TAB PO SCH (08:11)
[2022-11-16 08:12] VITALS: BP 115/77
[2022-11-16] MEDS: traMADol 50 MG TAB PO PRN (08:12)
[2022-11-16] MEDS: VALSARTAN 80 MG TAB (DIOVAN) PO SCH (08:12)
[2022-11-16 08:15] VITALS: BP 115/77
[2022-11-16] MEDS ORDERED: COLA100C5 PO (08:58)
[2022-11-16] MEDS ORDERED: MIRA1POW3 PO (08:58)
[2022-11-16] MEDS ORDERED: OLAN1TAB16 PO (08:58)
[2022-11-16] MEDS ORDERED: DIOV80TA3 PO (08:58)
== END 2022-11-16 16:02 | disposition home or self-care (01) | DRG 885 ==
LOC: M ED 18:38 → M PSY 11-12 16:19
PROVIDERS: ADMIT Student in an Organized Health Care Education/Training Program; ATTEND Student in an Organized Health Care Education/Training Program
DX: F31.2 Bipolar disorder, current episode manic severe with psychotic features (principal); G82.20 Paraplegia, unspecified; F43.10 Post-traumatic stress disorder, unspecified; F29 Unspecified psychosis not due to a substance or known physiological condition; G35 Multiple sclerosis; R00.1 Bradycardia, unspecified; R61 Generalized hyperhidrosis; N31.9 Neuromuscular dysfunction of bladder, unspecified; G43.909 Migraine, unspecified, not intractable, without status migrainosus; I10 Essential (primary) hypertension; R60.0 Localized edema; K21.9 Gastro-esophageal reflux disease without esophagitis; G47.9 Sleep disorder, unspecified; F41.9 Anxiety disorder, unspecified; S22.000D Wedge compression fracture of unspecified thoracic vertebra, subsequent encounter for fracture with routine healing; K57.90 Diverticulosis of intestine, part unspecified, without perforation or abscess without bleeding; K59.00 Constipation, unspecified; M81.0 Age-related osteoporosis without current pathological fracture; R13.10 Dysphagia, unspecified; Z79.891 Long term (current) use of opiate analgesic; Z79.899 Other long term (current) drug therapy